=== PATIENT | male | born 1955 | race Caucasian/White ===

== ENCOUNTER 2023-11-07 05:18 | Emergency (ER) | payer MEDICARE ==
[2023-11-07] MEDS ORDERED: DIPRIVAN 200 MG/20 ML IV ONE (05:19)
[2023-11-07] MEDS ORDERED: Quelicin Fliptop 200 MG/10 ML IJ ONE (05:19)
[2023-11-07] MEDS ORDERED: Amidate 20 MG/10 ML IV ONE (05:19)
[2023-11-07] MEDS ORDERED: Sodium Chloride 0.9% 1000 ML 1,000 ML ONE (05:50)
[2023-11-07 05:51] VITALS: TEMP 97
[2023-11-07] MEDS ORDERED: Propofol 1000 mg/100 ml Bottle 100 ML IV ONE (05:57)
[2023-11-07 05:59] LABS: Absolute Neutrophil Ct (ANC) 17.07 x10^3/uL (1.4-6.9); BASOPHIL % 0.3 % (0.0-0.4); Basophil (Absolute #) 0.05 x10^3/uL (0-0.4); Eosinophil (Absolute #) 0 x10^3/uL (0-0.5); Hematocrit 46.5 % (42-50); IMMATURE GRAN # 0.26 x10^3u/L (0.00-0.03); IMMATURE GRAN % 1.4 % (0.00-0.4); Lymphocyte (Absolute #) 0.64 x10^3/uL (1.0-4.6); Lymphocytes % 3.3 % (24.0-44.0); Mean Cell Volume 103.3 fL (78-100); Mean Corpuscular Hemoglobin 33.3 pg (26-32); Mean Corpuscular Hgb Concent. 32.3 g/dL (32-36); Mean Platelet Volume 10.1 fL (7.5-11.0); Monocyte (Absolute #) 1.09 x10^3/uL (0.0-1.3); Monocytes % 5.7 % (0.0-12.0); NUCLEATED RBC # 0.13 x10^3u/L (0.00-0.01); NUCLEATED RBC % 0.7 % (0.00-0.1); Neutrophil % 89.3 % (36.0-66.0); Platelet Count 320 x10^3/uL (150-450); Red Cell Distribution Width 20.2 % (11.5-14.0); White Blood Count 19.1 x10^3/uL (4.0-10.5)
[2023-11-07] MEDS ORDERED: CARDIZEM DRIP 100 MG/100 ML D5W 100 ML IV ONE (06:11)
--- NOTE | 2023-11-07 06:12 | XRAY ---
CLINICAL HISTORY: rt side weakness TECHNIQUE: Axial sections of the CT head were obtained without administration of intravenous contrast. Reformatted coronal and sagittal images were acquired. COMPARISON: None. FINDINGS: Small focal hypodense areas are identified in the right cerebellar hemisphere and left thalamus, likely old lacunar infarcts. Fierro-white matter differentiation is maintained. No midline shifts or deformity. No intracerebral or extra axial hematoma. Normal size and configuration of the cerebral ventricles. Normal CT appearance of the other posterior fossa structures namely the brainstem, and cerebellar peduncles. The IACs are unremarkable. The cerebellopontine angles are clear. The osseous structures in the skull base are unremarkable. Right maxillary sinusitis. Left vertebral and both ICA atheromatous calcifications. IMPRESSION: 1. No intracranial hematoma established territorial infarction or mass effect. 2. Small focal hypodense areas are identified in the right cerebellar hemisphere and left thalamus, likely old lacunar infarcts. 3. If strong clinical suspicion of stroke then suggest MRI with diffusion-weighted imaging. 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 Electronically Signed by: Jada Hernandez MD. (11/07/2023 06:07:36 EST)
[2023-11-07] MEDS ORDERED: Cardizem IV 50 MG/10 ML IV ONE (06:14)
[2023-11-07 06:16] LABS: INR 1.57 (0.8-3.0); PROTIME 16.6 SECONDS (9.4-12.5); PTT 28.7 SECONDS (25.1-36.5)
[2023-11-07] MEDS: Cardizem IV 50 MG/10 ML IV ONE (06:16)
[2023-11-07] MEDS: CARDIZEM DRIP 100 MG/100 ML D5W 100 ML IV PRN (06:19)
[2023-11-07 06:20] LABS: ALBUMIN 4.1 g/dL (3.5-5.0); ALKALINE PHOSPHATASE 105 U/L (38-126); ANION GAP 21.2 MEQ/L (5-15); BLOOD UREA NITROGEN 13 mg/dL (9-20); CHLORIDE 99 mmol/L (98-107); Calcium 8.5 mg/dL (8.4-10.2); Carbon Dioxide 23 mmol/L (22-30); Creatinine 1 0.97 mg/dL (0.66-1.25); ETHYL ALCOHOL < 10 mg/dL (0-10); Glucose 244 mg/dL (74-106); MAGNESIUM 1.7 mg/dL (1.6-2.3); NT PRO BNPII 12100 pg/mL (<300); Potassium 3.4 mmol/L (3.5-5.1); SGOT/AST 38 U/L (17-59); SGPT/ALT 22 U/L (0-50); SODIUM 140 mmol/L (135-145); Total Protein 6.7 g/dL (6.3-8.2)
[2023-11-07] MEDS ORDERED: Zofran 4 MG/2 ML VIAL ONE (06:26)
--- NOTE | 2023-11-07 06:36 | ERPHSYRPT ---
- History of Present Illness Source: EMS Exam Limitations: clinical condition Timing/Duration: yesterday Severity: moderate, severe Character of Deficits: new weakness, altered sensation, RLE, RUE, unable to speak Baseline Gait: walks w/o assistance - History of Present Illness Time Seen by Provider: 11/07/23 05:42 Physician History: 68 years old male with no known significant medical history is brought in the ER by EMS with complaints of altered mental status and right-sided weakness. As per report patient was not acting at his baseline around 6 PM yesterday, refused to be seen in the hospital. Around 2 AM he was having slurring of speech, at 4 AM he was flaccid on the right side with inability to his speak at all. Patient was also tachycardic and was found to be in A-fib RVR with no known history. Patient was initially placed on nonrebreather, BiPAP, no movements on the right side noticed. History is limited secondary to his condition. Patient per report does not take any medication. (THIERNO SALDANA) Allergies/Adverse Reactions: No Known Drug Allergies Allergy (Verified 11/07/23 05:42) Home Medications: Unobtainable 11/07/23 [History] - Review of Systems All Other Systems: Unable due to condition - Past Medical History Pertinent Past Medical History: Yes Neurological History: No Pertinent History ENT History: No Pertinent History Cardiac History: No Pertinent History Respiratory History: No Pertinent History Endocrine Medical History: No Pertinent History Musculoskeletal History: No Pertinent History GI Medical History: No Pertinent History History: No Pertinent History Psycho-Social History: No Pertinent History Male Reproductive Disorders: No Pertinent History Other Medical History: unk d/t altered mental status - Past Surgical History Past Surgical History: No Neuro Surgical History: No Pertinent History Cardiac: No Pertinent History Respiratory: No Pertinent History Gastrointestinal: No Pertinent History Genitourinary: No Pertinent History Musculoskeletal: No Pertinent History Male Surgical History: No Pertinent History Other Surgical History: unk d/t altered mental status - Social History Drug Use: none - Cowan Coma Scale Best Eye Response (Cowan): (2) open to pain Best Verbal Response (Cowan): (1) no verbal response Best Motor Response (Cowan): (4) withdraws to pain Liana Total: 7 - Physical Exam General Appearance: moderate distress Eye Exam: bilateral eye: normal inspection, PERRL Ears, Nose, Throat Exam: moist mucous membranes Neck Exam: normal inspection, non-tender, supple Respiratory: diminished breath sounds, crackles/rales, rhonchi, wheezing Cardiovascular: tachycardia, irregular, edema Gastrointestinal: soft, normal bowel sounds, other (Umbilical hernia) Extremity Exam: pelvis stable 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 Exam: No abnormal gag reflex Motor/Sensory: weak motor strength RUE, weak motor strength RLE Skin Exam: normal color SpO2 Interpretation: O2 applied SpO2: 98 O2 Delivery: BiPap/CPAP - Nursing Vital Signs Nursing Vital Signs: Initial Vital Signs Temperature 97 F 11/07/23 05:35 Pulse Rate 145 H 11/07/23 05:35 Respiratory Rate 28 H 11/07/23 05:35 Blood Pressure 148/116 11/07/23 05:35 O2 Sat by Pulse Oximetry 98 11/07/23 05:35 Pain Scale Pain Intensity 0 Ordered Tests: Active Orders 24 hr Category Date Time Status Training And Quality Manager STAT Care 11/07/23 05:42 Active EKG-ER Only STAT Care 11/07/23 05:41 Active Hazel [Catheter-Huxford Hazel] STAT Care 11/07/23 05:42 Active IV Insertion STAT Care 11/07/23 05:41 Active NPO (ED) STAT Care 11/07/23 05:41 Active CHEST 1 VIEW (PORTABLE) Stat Exams 11/07/23 06:16 Completed HEAD WITHOUT CONTRAST [CT] Stat Exams 11/07/23 05:36 Completed ARTERIAL BLOOD GASES Stat Lab 11/07/23 05:48 Completed BLOOD CULTURE Stat Lab 11/07/23 05:49 Received CBC W DIFF Stat Lab 11/07/23 05:55 Completed CMP Stat Lab 11/07/23 05:55 Completed ETHYL ALCOHOL Stat Lab 11/07/23 05:55 Completed MAGNESIUM Stat Lab 11/07/23 05:55 Completed NT PRO BNPII Stat Lab 11/07/23 05:55 Completed PROTIME WITH INR Stat Lab 11/07/23 05:55 Completed PTT Stat Lab 11/07/23 05:55 Completed TROPONIN Q4H Lab 11/07/23 05:55 Completed TROPONIN Q4H Lab 11/07/23 09:45 Ordered TROPONIN Q4H Lab 11/07/23 13:45 Ordered UA W/RFX UR CULTURE Stat Lab 11/07/23 05:41 Ordered Urine Triage Profile Stat Lab 11/07/23 05:41 Ordered Medication Summary Generic Name Dose Route Start Last Admin Trade Name Freuziel PRN Reason Stop Dose Admin Diltiazem HCl 100 mls @ 5 mls/hr 11/07/23 06:13 11/07/23 06:19 Cardizem Drip 100 Mg/100 Ml D5w IV 12/07/23 06:12 5 mg/hr .Q20H PRN 5 mls/hr HEART RATE/ A-FIB Administration Protocol 5 MG/HR Amiodarone HCl/Dextrose 360 mg in 200 mls @ 33 mls/hr 11/07/23 07:00 11/07/23 07:17 Nexterone 360 Mg/200 Ml Bag IV 12/07/23 06:59 33 ml/hr .Q6H4M KRYSTLE 33 mls/hr Administration Protocol Dexmedetomidine/Sodium Chloride 200 mcg in 50 mls @ 5 mls/hr 11/07/23 08:00 11/07/23 07:58 Dexmedetomidine 200mcg/50ml-Ns IV 12/07/23 07:59 5 ml/hr .Q10H KRYSTLE 5 mls/hr Administration Protocol Discontinued Medications Generic Name Dose Route Start Last Admin Trade Name Harrisq PRN Reason Stop Dose Admin Diltiazem HCl 10 mg 11/07/23 06:13 11/07/23 06:16 Diltiazem Hcl Iv 5 Mg/Ml Vial IV 11/07/23 06:14 10 mg STAT ONE Administration Diltiazem HCl Confirm 11/07/23 06:14 Diltiazem Hcl Iv 5 Mg/Ml Vial Administered 11/07/23 06:15 Dose 50 mg IV .STK-MED ONE Fentanyl Citrate 100 mcg 11/07/23 06:50 11/07/23 06:52 Fentanyl Citrate 100 Mcg/2 Ml* Vial IV 11/07/23 06:51 100 mcg STAT ONE Administration Fentanyl Citrate Confirm 11/07/23 06:51 Fentanyl Citrate 100 Mcg/2 Ml* Vial Administered 11/07/23 06:52 Dose 100 mcg .ROUTE .STK-MED ONE Fentanyl Citrate Confirm 11/07/23 08:05 Fentanyl Citrate 100 Mcg/2 Ml* Vial Administered 11/07/23 08:06 Dose 100 mcg .ROUTE .STK-MED ONE Fentanyl Citrate 100 mcg 11/07/23 08:09 11/07/23 08:16 Fentanyl Citrate 100 Mcg/2 Ml* Vial IV 11/07/23 08:10 100 mcg STAT ONE Administration Sodium Chloride Confirm 11/07/23 05:50 Sodium Chloride 0.9% 1000 Ml Administered 11/07/23 05:51 Dose 1,000 mls @ ud .ROUTE .STK-MED ONE Propofol Confirm 11/07/23 05:57 Propofol 1000 Mg/100 Ml Bottle Administered 11/07/23 05:58 Dose 100 mls @ ud IV .STK-MED ONE Diltiazem HCl Confirm 11/07/23 06:11 Cardizem Drip 100 Mg/100 Ml D5w Administered 11/07/23 06:12 Dose 100 mls @ ud IV .STK-MED ONE Piperacillin Sod/Tazobactam 100 mls @ 200 mls/hr 11/07/23 06:42 11/07/23 07:28 Sod 3.375 gm/ Sodium Chloride IV 11/07/23 07:11 200 mls/hr STAT ONE Administration Sodium Chloride Confirm 11/07/23 07:25 Sodium Chloride 100ml Mini-Bag Plus Administered 11/07/23 07:26 Dose 100 mls @ ud IV .STK-MED ONE Ondansetron HCl Confirm 11/07/23 06:26 Ondansetron Hcl 4 Mg/2 Ml Vial Administered 11/07/23 06:27 Dose 4 mg .ROUTE .STK-MED ONE Piperacillin Sod/Tazobactam Sod Confirm 11/07/23 07:25 Piperacillin/Tazobactam Sodium 3.375 Gm Vial Administered 11/07/23 07:26 Dose 3.375 gm IV .STK-MED ONE Lab/Rad Data: Laboratory Result Diagrams 11/07/23 05:55 11/07/23 05:55 Laboratory Results 11/07/23 11/07/23 11/07/23 Range/Units 05:55 05:55 05:55 WBC (4.0-10.5) x10^3/uL RBC (4.1-5.6) x10^6/uL Hgb (12.5-18.0) g/dL Hct (42-50) % MCV (78-100) fL MCH (26-32) pg MCHC (32-36) g/dL RDW (11.5-14.0) % Plt Count (150-450) x10^3/uL MPV (7.5-11.0) fL Gran % (36.0-66.0) % Immature Gran % (Auto) (0.00-0.4) % Nucleat RBC Rel Count (0.00-0.1) % Eos # (Auto) (0-0.5) x10^3/uL Immature Gran # (Auto) (0.00-0.03) x10^3u/L Absolute Lymphs (auto) (1.0-4.6) x10^3/uL Absolute Monos (auto) (0.0-1.3) x10^3/uL Absolute Nucleated RBC (0.00-0.01) x10^3u/L Lymphocytes % (24.0-44.0) % Monocytes % (0.0-12.0) % Eosinophils % (0.00-5.0) % Basophils % (0.0-0.4) % Absolute Granulocytes (1.4-6.9) x10^3/uL Basophils # (0-0.4) x10^3/uL PT 16.6 H (9.4-12.5) SECONDS INR 1.57 (0.8-3.0) APTT 28.7 (25.1-36.5) SECONDS Puncture Site pCO2 (35-45) mmHg pO2 (75-100) mmHg Base Excess (-2.0-2.0) O2 Saturation (94-100) g/dF ABG pH (7.35-7.45) ABG HCO3 (22-28) ABG O2 Sat (Measured) (95-100) % Juan Carlos Test A-a Gradient a/A Ratio Hemoglobin Carboxyhemoglobin (0.0-6.9) % THgb Methemoglobin (1.4-1.5) % Potassium 3.4 L (3.5-5.1) Temperature C POC O2 Flow Rate % Sodium 140 (135-145) mmol/L Chloride 99 (98-107) mmol/L Carbon Dioxide 23 (22-30) mmol/L Anion Gap 21.2 H (5-15) MEQ/L BUN 13 (9-20) mg/dL Creatinine 0.97 (0.66-1.25) mg/dL Estimated GFR 85.0 ML/MIN Glucose 244 H (74-106) mg/dL Calcium 8.5 (8.4-10.2) mg/dL Magnesium 1.7 (1.6-2.3) mg/dL Total Bilirubin 3.50 H (0.2-1.3) mg/dL AST 38 (17-59) U/L ALT 22 (0-50) U/L Alkaline Phosphatase 105 (38-126) U/L Troponin I 0.065 H* (0.000-0.034) ng/mL NT-Pro-B Natriuret Pep 07723 (<300) pg/mL Serum Total Protein 6.7 (6.3-8.2) g/dL Albumin 4.1 (3.5-5.0) g/dL Ethyl Alcohol < 10 (0-10) mg/dL 11/07/23 11/07/23 Range/Units 05:55 05:48 WBC 19.1 H (4.0-10.5) x10^3/uL RBC 4.50 (4.1-5.6) x10^6/uL Hgb 15.0 (12.5-18.0) g/dL Hct 46.5 (42-50) % MCV 103.3 H (78-100) fL MCH 33.3 H (26-32) pg MCHC 32.3 (32-36) g/dL RDW 20.2 H (11.5-14.0) % Plt Count 320 (150-450) x10^3/uL MPV 10.1 (7.5-11.0) fL Gran % 89.3 H (36.0-66.0) % Immature Gran % (Auto) 1.4 H (0.00-0.4) % Nucleat RBC Rel Count 0.7 H (0.00-0.1) % Eos # (Auto) 0 (0-0.5) x10^3/uL Immature Gran # (Auto) 0.26 H (0.00-0.03) x10^3u/L Absolute Lymphs (auto) 0.64 L (1.0-4.6) x10^3/uL Absolute Monos (auto) 1.09 (0.0-1.3) x10^3/uL Absolute Nucleated RBC 0.13 H (0.00-0.01) x10^3u/L Lymphocytes % 3.3 L (24.0-44.0) % Monocytes % 5.7 (0.0-12.0) % Eosinophils % 0.0 (0.00-5.0) % Basophils % 0.3 (0.0-0.4) % Absolute Granulocytes 17.07 H (1.4-6.9) x10^3/uL Basophils # 0.05 (0-0.4) x10^3/uL PT (9.4-12.5) SECONDS INR (0.8-3.0) APTT (25.1-36.5) SECONDS Puncture Site RRA pCO2 43 (35-45) mmHg pO2 145 H* (75-100) mmHg Base Excess 1.4 (-2.0-2.0) O2 Saturation 95.9 (94-100) g/dF ABG pH 7.40 (7.35-7.45) ABG HCO3 26.6 (22-28) ABG O2 Sat (Measured) 99.5 (95-100) % Juan Carlos Test YES A-a Gradient 514 a/A Ratio 0.22 Hemoglobin 15.2 Carboxyhemoglobin 2.5 (0.0-6.9) % THgb Methemoglobin 1.0 L (1.4-1.5) % Potassium 2.9 L* (3.5-5.1) Temperature 37.0 C POC O2 Flow Rate 100 % Sodium (135-145) mmol/L Chloride (98-107) mmol/L Carbon Dioxide (22-30) mmol/L Anion Gap (5-15) MEQ/L BUN (9-20) mg/dL Creatinine (0.66-1.25) mg/dL Estimated GFR ML/MIN Glucose (74-106) mg/dL Calcium (8.4-10.2) mg/dL Magnesium (1.6-2.3) mg/dL Total Bilirubin (0.2-1.3) mg/dL AST (17-59) U/L ALT (0-50) U/L Alkaline Phosphatase (38-126) U/L Troponin I (0.000-0.034) ng/mL NT-Pro-B Natriuret Pep (<300) pg/mL Serum Total Protein (6.3-8.2) g/dL Albumin (3.5-5.0) g/dL Ethyl Alcohol (0-10) mg/dL - Progress Progress: unchanged Counseled pt/family regarding: lab results, diagnosis - Progress Progress Note: 11/07/23 06:38 68 years old is evaluated in the ER for strokelike symptoms. Last well-known [address] head is obtained which is negative for intracranial bleed or any other acute findings. Patient is flaccid on the right side, nonv erbal. He is promptly intubated. Chest x-ray showed congestion with cardiomegaly and bilateral airspace disease reviewed by me, official report is pending. Patient has A-fib with RVR, started on Cardizem. 11/07/23 06:[address] Mclean neurology at [facility], reviewed history, workup and current management, agreed with transfer. She recommended keeping blood pressure on the higher end but below 220 systolic. We will stop Cardizem and start him on Amio drip. (THIERNO SALDANA) 11/07/23 08:38 I took over care at [address] Saldana. Patient has had some strokelike symptoms is intubated. Patient has been accepted by Dr. Mclean at [facility]. Currently they are not flying helicopters due to weather.Goal for some permissive hypertension. However, propofol most likely causing patient's blood pressure to drop. Therefore we did switch to Precedex. Amiodarone seems to be controlling heart rate well. Plan for continued ER close monitoring. Otherwise stable. I have appropriately updated family and answered all their questions. 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 Mclean neurology [facility]) Reviewed:: Test results Agreed on:: Treatment plan Will see patient: in ED - Diagnostic Testing Diagnostic test were ordered, analyzed, and reviewed by me: Yes Radiological Interpretation: Interpreted by me, Reviewed by me, Teleradiologist Report - Risk of complications The pt has a high risk of morbidity or mortality based on: Decision regarding hospitilization or escalation of hosp level of care - Departure Departure Disposition: Transfer Critical Care Time: Yes Critical Care Time(excluding separately billable procedures): Critical 30-74 mins - Departure Clinical Impression: Stroke Condition: Serious Referrals: DOCTOR,NO FAMILY [Primary Care Provider] - Follow up/PCP as directed
[2023-11-07] MEDS ORDERED: SUBLIMAZE 100 MCG/2 ML ONE ×3 (06:51→09:01)
[2023-11-07] MEDS: SUBLIMAZE 100 MCG/2 ML IV ONE ×3 (06:52→09:30)
--- NOTE | 2023-11-07 07:08 | XRAY ---
CLINICAL HISTORY: decreased sat TECHNIQUE: X-ray chest portable AP view COMPARISON: None. FINDINGS: ETT is seen in place and it is 7.0 cm above the ariel Patchy opacities are seen in the bilateral perihilar region. Increased bronchovascular markings. Minimal thickening of the right horizontal fissure Despite AP view heart size appears enlarged finding represents cardiomegaly. Bilateral costophrenic and cardiophrenic angles appear within normal limits. No evidence of pneumothorax. The bony thoracic cage appears grossly within the normal limit IMPRESSION: 1. Above-mentioned findings suggest pulmonary edema however the possibility of infection cannot be entirely excluded. 2. Despite AP view heart size appears enlarged finding, likely represents cardiomegaly. 3. ETT seen in place and it is 7.0 cm above the ariel 4. Advise clinical correlation and follow-up Electronically Signed by: Jada Hernandez MD. (11/07/2023 07:03:52 EST)
[2023-11-07 07:09] LABS: A-aADO2 514; ABG HEMOGLOBIN 15.2; ARTERIAL BLD GAS O2 SATURATION 99.5 % (95-100); ARTERIAL BLOOD GAS BASE EXCESS 1.4 (-2.0-2.0); ARTERIAL BLOOD GAS FIO2 100 %; ARTERIAL BLOOD GAS PCO2 43 mmHg (35-45); ARTERIAL BLOOD GAS PO2 145 mmHg (75-100); CARBOXYHEMOGLOBIN 2.5 % THgb (0.0-6.9); HCO3- 26.6 (22-28); HGB O2 SAT 95.9 g/dF (94-100); paO2 pAO1 0.22
[2023-11-07 07:10] LABS: ABG POTASSIUM 2.9 (3.5-5.1); ABG SITE RRA; ALLEN TEST OK? YES
[2023-11-07] MEDS ORDERED: NEXTERONE 360 MG/200 ML BAG 360 MG/200 ML PLAST..BAG IV ONE (07:13)
[2023-11-07] MEDS: NEXTERONE 360 MG/200 ML BAG 360 MG/200 ML PLAST..BAG IV SCH (07:17)
[2023-11-07] MEDS ORDERED: Sodium Chloride 100ML MINI-BAG PLUS 100 ML IV ONE (07:25)
[2023-11-07] MEDS ORDERED: PIPERACILLIN/TAZOBACTAM IV ONE (07:25)
[2023-11-07] MEDS: PIPERACILLIN/TAZOBACTAM 3.375 GM in Sodium Chloride 100ML MINI-BAG PLUS 100 ML IV ONE (07:28)
[2023-11-07] MEDS: [UNRECOGNIZED DRUG - OTHER] IV SCH (07:58)
[2023-11-07] MEDS: DEXMEDETOMIDINE 200 MCG/50 ML IV SCH (07:58)
[2023-11-07 08:32] VITALS: RESP 17
[2023-11-07] MEDS ORDERED: FENTANYL 500 MCG/10 ML VIAL 1,500 MCG in Sodium Chloride 0.9% 150 ML 120 ML IV PRN (08:57)
[2023-11-07] MEDS ORDERED: FENTANYL 500 MCG/10 ML VIAL IV ONE (09:01)
[2023-11-07] MEDS ORDERED: SODIUM CHLORIDE 0.9% IV ONE (09:03)
[2023-11-07 09:44] VITALS: BP 82/64; PULSE 121; O2SAT 96
== END 2023-11-07 09:30 | disposition short-term general hospital (02) ==
LOC: ED 05:18
DX: I63.9 Cerebral infarction, unspecified (principal); I10 Essential (primary) hypertension; Z20.828 Contact with and (suspected) exposure to other viral communicable diseases
CPT/HCPCS: 31500; 36000; 36415; 36600; 51702; 70450; 71045; 80053; 82077; 82375; 82803; 83735; 83880; 84484; 85025; 85610; 85730; 87040; 93005; 93041; 94002; 94799; 96365; 96374; 96375; 96376; 99285; 99291; J0330; J2405; J2704; J3010; J0282